=== PATIENT | female | born 1935 | race African-American/Black ===

== ENCOUNTER 2020-10-17 10:58 | Inpatient (IN) ==
[2020-10-17] MEDS ORDERED: NALOXONE 0.4 MG/ML VIAL ONE (11:27)
[2020-10-17] MEDS ORDERED: NALOXONE 0.4 MG/ML VIAL IV STA (11:28)
[2020-10-17] MEDS ORDERED: ONDANSETRON 4 MG/2 ML VIAL IV STA (11:37)
[2020-10-17 11:48] LABS: Basophils % 0.4 % (0.0-0.8); Hematocrit 28.3 VOL% (35.7-47.0); Immature Granulocytes % 0.9 %; Immature Granulocytes Absolute 0.02 #; Lymphocytes # 0.4 10*3/uL (1.4-4.0); Lymphocytes % 14.9 % (21.3-54.2); Mean Corpuscular HGB Conc 31.8 GM/DL (32-36); Mean Corpuscular Volume 98.6 FL (87-102); Mean Platelet Volume 13.3 FL (9.6-12.0); Monocytes % 10.2 % (1.7-12.7); Neutrophils % 73.6 % (38.7-73.9); Platelet Count 113 T/CUMM (130-400); Red Blood Count 2.87 MC/CUMM (3.8-5.5); Red Cell Distribution Width 15.8 % (9.3-17.3); White Blood Count 2.4 T/CUMM (4-12)
[2020-10-17 12:07] LABS: Bilirubin,Total 0.5 MG/DL (0.2-1.0); Calcium 8.8 MG/DL (8.5-10.1); Osmolality,Calculated 291.4 MOS/KG (273-304); Potassium 5.3 MMOL/L (3.5-5.1); Total Protein 6.8 G/DL (5.0-7.5)
[2020-10-17] MEDS ORDERED: SODIUM CHLORIDE 0.9% 1,000 ML IV STA (12:15)
[2020-10-17 12:45] LABS: INR 1.2; PT Patient Result 12.6 SECS (9.8-11.9)
[2020-10-17 12:56] LABS: Anisocytosis 2+; Platelet Estimate Adequate; Tear Drop Cells Few
[2020-10-17 12:57] LABS: Poikilocytosis 1+
[2020-10-17] MEDS ORDERED: GLUCAGON 1 MG VIAL IM PRN (13:44)
[2020-10-17 15:52] LABS: Hematocrit 26.7 VOL% (35.7-47.0); Hemoglobin 8.7 GM/DL (12.0-16.0)
[2020-10-17] MEDS: PANTOPRAZOLE 40 MG VIAL IV SCH ×2 (16:00→21:30)
[2020-10-17] MEDS: SODIUM CHLORIDE 0.9% 1,000 ML IV SCH ×2 (16:00→23:54)
[2020-10-17 20:33] LABS: Hematocrit 29.6 VOL% (35.7-47.0); Hemoglobin 9.1 GM/DL (12.0-16.0)
[2020-10-18 02:06] LABS: Hematocrit 24.8 VOL% (35.7-47.0); Hemoglobin 8.1 GM/DL (12.0-16.0)
[2020-10-18 02:28] LABS: Albumin 2.5 G/DL (3.4-5.0); Bilirubin,Total 0.4 MG/DL (0.2-1.0); Osmolality,Calculated 294.8 MOS/KG (273-304); Potassium 5.1 MMOL/L (3.5-5.1); Total Protein 6.1 G/DL (5.0-7.5)
[2020-10-18 05:43] LABS: Eosinophils % 1.1 % (0.00-10.9); Hematocrit 24.6 VOL% (35.7-47.0); Hemoglobin 8.3 GM/DL (12.0-16.0); Lymphocytes # 0.4 10*3/uL (1.4-4.0); Lymphocytes % 22.5 % (21.3-54.2); Mean Corpuscular HGB Conc 33.7 GM/DL (32-36); Mean Corpuscular Volume 97.6 FL (87-102); Mean Platelet Volume 12.2 FL (9.6-12.0); Neutrophils % 67.4 % (38.7-73.9); Red Blood Count 2.52 MC/CUMM (3.8-5.5); Red Cell Distribution Width 15.8 % (9.3-17.3); White Blood Count 1.8 T/CUMM (4-12)
[2020-10-18 05:49] LABS: Platelet Count 68 T/CUMM (130-400)
[2020-10-18 06:14] LABS: Anisocytosis 1+; Hypochromasia 1+; Microcytosis 1+
[2020-10-18 06:15] LABS: Ovalocytes Few; Platelet Estimate Decreased; Target Cells Slight
[2020-10-18 07:57] LABS: Hematocrit 24.9 VOL% (35.7-47.0); Hemoglobin 8.1 GM/DL (12.0-16.0)
[2020-10-18] MEDS: SODIUM CHLORIDE 0.9% 1,000 ML IV SCH ×5 (09:19→19:30)
[2020-10-18] MEDS: PANTOPRAZOLE 40 MG VIAL IV SCH ×2 (09:20→20:55)
[2020-10-18] MEDS ORDERED: propofoL 200 MG/20 ML VIAL IV ONE (10:10)
[2020-10-18] MEDS ORDERED: ETOMIDATE 20 MG/10 ML VIAL IV ONE (10:10)
[2020-10-18] MEDS ORDERED: LIDOCAINE 2% 5 ML VIAL ONE (10:10)
[2020-10-18] MEDS ORDERED: PHENYLEPHRINE 1 MG/10 ML SYRINGE IV ONE (10:10)
[2020-10-18] MEDS: SUCRALFATE 1 GM/10 ML UDCUP PO SCH (16:16)
[2020-10-19] MEDS: SODIUM CHLORIDE 0.9% 1,000 ML IV SCH ×3 (03:49→11:19)
[2020-10-19 05:17] LABS: Eosinophils % 1.3 % (0.00-10.9); Hematocrit 24.2 VOL% (35.7-47.0); Hemoglobin 7.7 GM/DL (12.0-16.0); Immature Granulocytes % 0.4 %; Immature Granulocytes Absolute 0.01 #; Lymphocytes # 0.5 10*3/uL (1.4-4.0); Lymphocytes % 20.4 % (21.3-54.2); Mean Corpuscular HGB Conc 31.8 GM/DL (32-36); Mean Corpuscular Volume 100.4 FL (87-102); Mean Platelet Volume 11.9 FL (9.6-12.0); Monocytes % 8.9 % (1.7-12.7); Platelet Count 81 T/CUMM (130-400); Red Blood Count 2.41 MC/CUMM (3.8-5.5); Red Cell Distribution Width 15.9 % (9.3-17.3); White Blood Count 2.3 T/CUMM (4-12)
[2020-10-19 05:35] LABS: Hypochromasia 1+; Microcytosis 1+; Ovalocytes Slight; Platelet Estimate Decreased
[2020-10-19 05:41] LABS: Albumin 2.3 G/DL (3.4-5.0); Bilirubin,Total 0.6 MG/DL (0.2-1.0); Calcium 8.5 MG/DL (8.5-10.1); Potassium 4.3 MMOL/L (3.5-5.1); Total Protein 5.5 G/DL (5.0-7.5)
[2020-10-19] MEDS: PANTOPRAZOLE 40 MG VIAL IV SCH ×2 (08:35→20:57)
[2020-10-19] MEDS: DEXTROSE 50% 25 GM/50 ML VIAL IV PRN ×2 (08:35→11:17)
[2020-10-19] MEDS: SUCRALFATE 1 GM/10 ML UDCUP PO SCH ×2 (08:35→15:45)
[2020-10-19] MEDS: DEXTROSE 5% NACL 0.9% 1,000 ML IV SCH (12:19)
[2020-10-20] MEDS: DEXTROSE 5% NACL 0.9% 1,000 ML IV SCH (01:34)
[2020-10-20 05:34] LABS: Basophils % 0.5 % (0.0-0.8); Eosinophils % 0.9 % (0.00-10.9); Hematocrit 26.5 VOL% (35.7-47.0); Hemoglobin 8.3 GM/DL (12.0-16.0); Immature Granulocytes % 0.5 %; Immature Granulocytes Absolute 0.01 #; Lymphocytes # 0.4 10*3/uL (1.4-4.0); Lymphocytes % 20.3 % (21.3-54.2); Mean Corpuscular HGB Conc 31.3 GM/DL (32-36); Mean Corpuscular Volume 101.9 FL (87-102); Mean Platelet Volume 12.2 FL (9.6-12.0); Monocytes % 10.6 % (1.7-12.7); Neutrophils % 67.2 % (38.7-73.9); White Blood Count 2.2 T/CUMM (4-12)
[2020-10-20 05:43] LABS: Platelet Count 78 T/CUMM (130-400)
[2020-10-20 05:51] LABS: Calcium 8.6 MG/DL (8.5-10.1); Hypochromasia 1+; Microcytosis 1+; Osmolality,Calculated 292.8 MOS/KG (273-304); Platelet Estimate Decreased; Potassium 3.7 MMOL/L (3.5-5.1)
[2020-10-20] MEDS: PANTOPRAZOLE 40 MG VIAL IV SCH ×2 (09:12→21:44)
[2020-10-20] MEDS: SUCRALFATE 1 GM/10 ML UDCUP PO SCH ×3 (09:12→15:57)
[2020-10-21 07:15] LABS: Calcium 8.3 MG/DL (8.5-10.1); Osmolality,Calculated 283.1 MOS/KG (273-304); Potassium 3.3 MMOL/L (3.5-5.1)
[2020-10-21] MEDS ORDERED: MAGNESIUM SULF RIDER 4 GM in PREMIX 1 EACH IV ONE (07:43)
[2020-10-21] MEDS ORDERED: POTASSIUM CHLORIDE 20 MEQ/15 ML UDCUP PO ONE (07:44)
[2020-10-21] MEDS: PANTOPRAZOLE 40 MG VIAL IV SCH (08:50)
[2020-10-21] MEDS: SUCRALFATE 1 GM/10 ML UDCUP PO SCH (09:43)
[2020-10-21 12:26] VITALS: BP 116/77
== END 2020-10-21 14:35 | DRG 369 ==
LOC: EDBD → EDUNIT# → N.ED 10:58 → N.EDINP 13:44 → N.TELES 14:39
PROVIDERS: ADMIT Internal Medicine; ATTEND Internal Medicine

== ENCOUNTER 2020-11-01 11:13 | Inpatient (IN) ==
[2020-11-01 12:37] LABS: Eosinophils % 1.9 % (0.00-10.9); Hematocrit 21.2 VOL% (35.7-47.0); Hemoglobin 6.9 GM/DL (12.0-16.0); Lymphocytes # 0.3 10*3/uL (1.4-4.0); Lymphocytes % 26.2 % (21.3-54.2); Mean Corpuscular HGB Conc 32.5 GM/DL (32-36); Mean Platelet Volume 12.5 FL (9.6-12.0); Monocytes % 18.7 % (1.7-12.7); Neutrophils % 53.2 % (38.7-73.9); Platelet Count 74 T/CUMM (130-400); Red Blood Count 2.12 MC/CUMM (3.8-5.5); Red Cell Distribution Width 16.7 % (9.3-17.3); White Blood Count 1.1 T/CUMM (4-12)
[2020-11-01 13:02] LABS: Lymphocytes 27 % (20-55); Segmented Neutrophils 59 % (50-85); Total Cells Counted 100
[2020-11-01 13:17] LABS: Albumin 2.7 G/DL (3.4-5.0); Bilirubin,Total 1.2 MG/DL (0.2-1.0); Calcium 8.3 MG/DL (8.5-10.1); Osmolality,Calculated 281.1 MOS/KG (273-304); Potassium 3.6 MMOL/L (3.5-5.1); Total Protein 6.1 G/DL (6.4-8.2)
[2020-11-01] MEDS ORDERED: DOCUSATE SODIUM 100 MG CAPSULE PO PRN (14:18)
[2020-11-01] MEDS ORDERED: ONDANSETRON 4 MG/2 ML VIAL IV PRN (14:18)
[2020-11-01] MEDS ORDERED: hydrALAZINE 20 MG/1 ML VIAL IV PRN (14:18)
[2020-11-01] MEDS ORDERED: ACETAMINOPHEN 325 MG TABLET PO PRN (14:18)
[2020-11-01] MEDS ORDERED: DEXTROSE 50% 25 GM/50 ML VIAL IV PRN (14:18)
[2020-11-01] MEDS ORDERED: GLUCAGON 1 MG VIAL IM PRN (14:18)
[2020-11-01 14:22] LABS: Amorphous Crystals,Urine Occasional /HPF (Few); Bacteria,Urine Occasional /HPF (Few); Bilirubin,Urine Negative (Negative); Blood, Urine Negative (Negative); Glucose,Urine (UA) Negative (Negative); Ketones,Urine Negative (Negative); Mucus,Urine Occasional /LPF (Occasional); Nitrite,Urine Negative (Negative); Protein,Urine Negative; RBC,Urine <1 /HPF (0-4); Squamous Epithelial Cell,Urine Occasional /HPF (0-10); Urine Appearance Slightly Hazy (Clear); Urine Color Yellow (Yellow); Urine Urobilinogen < 2.0 EU/DL (0.2-1.0); WBC,Urine 8 /HPF (0-6)
[2020-11-01 14:51] LABS: Risk Ratio 2.19; Thyroid Stimulating Hormone 3.64 uIU/ml (0.358-3.74); VLDL CHOLESTEROL 17.6 MG/DL
[2020-11-01] MEDS ORDERED: MAGNESIUM SULF RIDER 4 GM in PREMIX 1 EACH IV PRN (15:07)
[2020-11-01] MEDS ORDERED: SODIUM CHLORIDE 0.9% 1,000 ML IV PRN (15:07)
[2020-11-01] MEDS ORDERED: CYANOCOBALAMIN 1000 MCG/1 ML VIAL IM SCH (15:30)
[2020-11-01] MEDS: MAGNESIUM SULF RIDER 2 GM in PREMIX 1 EACH IV PRN (16:48)
[2020-11-01] MEDS: FILGRASTIM-SNDZ 300 MCG/0.5 ML SYRINGE SUBCUT SCH (16:51)
[2020-11-01] MEDS: LIDOCAINE 2% VISCOUS 100 ML BOTTLE SWISH/SPIT SCH (17:33)
[2020-11-01] MEDS: QUEtiapine 25 MG TABLET PO SCH (21:00)
[2020-11-01] MEDS: SUCRALFATE 1 GM/10 ML UDCUP PO SCH (21:00)
[2020-11-01] MEDS: MEMANTINE 5 MG TABLET PO SCH (21:00)
[2020-11-02] MEDS ORDERED: LORazepam 2 MG/1 ML VIAL IV ONE (00:40)
[2020-11-02 05:17] LABS: Basophils % 0.6 % (0.0-0.8); Eosinophils % 1.2 % (0.00-10.9); Hematocrit 24.1 VOL% (35.7-47.0); Hemoglobin 8.2 GM/DL (12.0-16.0); Immature Granulocytes % 1.2 %; Immature Granulocytes Absolute 0.02 #; Lymphocytes # 0.4 10*3/uL (1.4-4.0); Lymphocytes % 22.5 % (21.3-54.2); Mean Corpuscular Volume 94.1 FL (87-102); Mean Platelet Volume 12.8 FL (9.6-12.0); Monocytes % 13.6 % (1.7-12.7); Neutrophils % 60.9 % (38.7-73.9); Red Cell Distribution Width 16.8 % (9.3-17.3)
[2020-11-02 05:24] LABS: Albumin 2.6 G/DL (3.4-5.0); Bilirubin,Total 0.7 MG/DL (0.2-1.0); Calcium 8.7 MG/DL (8.5-10.1); Osmolality,Calculated 282.8 MOS/KG (273-304); Potassium 3.2 MMOL/L (3.5-5.1); Total Protein 5.7 G/DL (6.4-8.2)
[2020-11-02 05:51] LABS: White Blood Count 1.7 T/CUMM (4-12)
[2020-11-02 05:52] LABS: Platelet Count 63 T/CUMM (130-400); Red Blood Count 2.56 MC/CUMM (3.8-5.5)
[2020-11-02 06:45] LABS: Band Neutrophils 2 % (0-10); Eosinophils 1 % (0-10); Hypochromasia 1+; Lymphocytes 23 % (20-55); Microcytosis 1+; Platelet Estimate Decreased; Segmented Neutrophils 60 % (50-85); Total Cells Counted 100
[2020-11-02] MEDS ORDERED: POTASSIUM CHLORIDE RIDER 10 MEQ in PREMIX 1 EACH IV PRN (07:33)
[2020-11-02] MEDS: FILGRASTIM-SNDZ 300 MCG/0.5 ML SYRINGE SUBCUT SCH (08:51)
[2020-11-02] MEDS: lisinopriL 5 MG TABLET PO SCH (08:52)
[2020-11-02] MEDS: POTASSIUM CHLORIDE 20 MEQ TABLET PO PRN ×4 (08:52→15:15)
[2020-11-02] MEDS: FERROUS SULFATE 325 MG TABLET PO SCH (08:52)
[2020-11-02] MEDS: MEMANTINE 5 MG TABLET PO SCH ×2 (08:52→20:16)
[2020-11-02] MEDS: SUCRALFATE 1 GM/10 ML UDCUP PO SCH ×2 (08:52→20:16)
[2020-11-02] MEDS: MULTIVITAMIN (PRENATAL) TABLET PO SCH (08:53)
[2020-11-02] MEDS: buPROPion SR 100 MG TABLET PO SCH (08:53)
[2020-11-02] MEDS ORDERED: MAGNESIUM SULF RIDER 4 GM in PREMIX 1 EACH IV ONE (09:00)
[2020-11-02] MEDS: LIDOCAINE 2% VISCOUS 100 ML BOTTLE SWISH/SPIT SCH ×3 (09:03→16:35)
[2020-11-02] MEDS: GABAPENTIN 300 MG CAPSULE PO SCH (20:16)
[2020-11-02] MEDS: PANTOPRAZOLE 40 MG TABLET PO SCH (20:16)
[2020-11-02] MEDS: QUEtiapine 25 MG TABLET PO SCH (20:16)
[2020-11-03 05:05] LABS: Basophils % 0.5 % (0.0-0.8); Eosinophils # 0.1 10*3/uL (0.0-0.87); Eosinophils % 2.3 % (0.00-10.9); Hematocrit 26.4 VOL% (35.7-47.0); Hemoglobin 8.8 GM/DL (12.0-16.0); Immature Granulocytes % 9.9 %; Immature Granulocytes Absolute 0.22 #; Lymphocytes # 0.5 10*3/uL (1.4-4.0); Lymphocytes % 20.3 % (21.3-54.2); Mean Corpuscular HGB Conc 33.3 GM/DL (32-36); Mean Corpuscular Volume 93.6 FL (87-102); Mean Platelet Volume 11.6 FL (9.6-12.0); Monocytes % 17.1 % (1.7-12.7); Neutrophils % 49.9 % (38.7-73.9); Platelet Count 74 T/CUMM (130-400); Red Blood Count 2.82 MC/CUMM (3.8-5.5); Red Cell Distribution Width 18.4 % (9.3-17.3); White Blood Count 2.2 T/CUMM (4-12)
[2020-11-03 05:24] LABS: Albumin 2.3 G/DL (3.4-5.0); Bilirubin,Total 1.3 MG/DL (0.2-1.0); Calcium 8.5 MG/DL (8.5-10.1); Osmolality,Calculated 287.6 MOS/KG (273-304); Total Protein 5.2 G/DL (6.4-8.2)
[2020-11-03 05:29] LABS: Band Neutrophils 2 % (0-10); Eosinophils 2 % (0-10); Lymphocytes 21 % (20-55); Platelet Estimate Decreased; Segmented Neutrophils 56 % (50-85); Total Cells Counted 100
[2020-11-03 05:30] LABS: Hypochromasia 1+; Microcytosis 1+; Ovalocytes Slight
[2020-11-03] MEDS: LIDOCAINE 2% VISCOUS 100 ML BOTTLE SWISH/SPIT SCH ×3 (08:32→17:17)
[2020-11-03] MEDS: FILGRASTIM-SNDZ 300 MCG/0.5 ML SYRINGE SUBCUT SCH (08:32)
[2020-11-03] MEDS: PANTOPRAZOLE 40 MG TABLET PO SCH ×2 (08:33→20:06)
[2020-11-03] MEDS: SUCRALFATE 1 GM/10 ML UDCUP PO SCH ×2 (08:33→20:05)
[2020-11-03] MEDS: allopurinoL 100 MG TABLET PO SCH (08:33)
[2020-11-03] MEDS: FERROUS SULFATE 325 MG TABLET PO SCH (08:33)
[2020-11-03] MEDS: buPROPion SR 100 MG TABLET PO SCH (08:33)
[2020-11-03] MEDS: lisinopriL 5 MG TABLET PO SCH (08:33)
[2020-11-03] MEDS: ASPIRIN EC 81 MG TABLET PO SCH (08:33)
[2020-11-03] MEDS: MULTIVITAMIN (PRENATAL) TABLET PO SCH (08:33)
[2020-11-03] MEDS: ESCITALOPRAM 10 MG TABLET PO SCH (08:33)
[2020-11-03] MEDS: MEMANTINE 5 MG TABLET PO SCH ×2 (08:33→20:06)
[2020-11-03] MEDS ORDERED: DEXTROSE 5% NACL 0.45% 1,000 ML IV SCH (12:30)
[2020-11-03] MEDS: QUEtiapine 25 MG TABLET PO SCH (20:06)
[2020-11-03] MEDS: GABAPENTIN 300 MG CAPSULE PO SCH (20:06)
[2020-11-04 05:04] LABS: Basophils % 0.4 % (0.0-0.8); Eosinophils # 0.1 10*3/uL (0.0-0.87); Eosinophils % 2.4 % (0.00-10.9); Immature Granulocytes % 7.5 %; Immature Granulocytes Absolute 0.19 #; Lymphocytes # 0.5 10*3/uL (1.4-4.0); Lymphocytes % 19.8 % (21.3-54.2); Mean Corpuscular HGB Conc 32.9 GM/DL (32-36); Mean Corpuscular Volume 94.6 FL (87-102); Mean Platelet Volume 13.2 FL (9.6-12.0); Monocytes % 20.2 % (1.7-12.7); NRBC # 0.02 10*3/uL; Neutrophils % 49.7 % (38.7-73.9)
[2020-11-04 05:08] LABS: Platelet Count 77 T/CUMM (130-400); Red Blood Count 2.96 MC/CUMM (3.8-5.5); White Blood Count 2.5 T/CUMM (4-12)
[2020-11-04 05:09] LABS: Hemoglobin 9.2 GM/DL (12.0-16.0)
[2020-11-04 05:21] LABS: Calcium 8.7 MG/DL (8.5-10.1); Osmolality,Calculated 287.7 MOS/KG (273-304); Potassium 3.8 MMOL/L (3.5-5.1)
[2020-11-04 05:25] LABS: Albumin 2.4 G/DL (3.4-5.0); Bilirubin,Total 0.7 MG/DL (0.2-1.0); Calcium 8.6 MG/DL (8.5-10.1); Potassium 3.7 MMOL/L (3.5-5.1); Total Protein 5.7 G/DL (6.4-8.2)
[2020-11-04 05:31] LABS: Band Neutrophils 7 % (0-10); Eosinophils 3 % (0-10); Lymphocytes 19 % (20-55); Segmented Neutrophils 55 % (50-85); Total Cells Counted 100
[2020-11-04 05:32] LABS: Atypical Lymphocytes Few; Hypochromasia 1+; Target Cells Slight
[2020-11-04 05:33] LABS: Microcytosis 1+; Ovalocytes Slight; Platelet Estimate Decreased
[2020-11-04] MEDS: MAGNESIUM SULF RIDER 2 GM in PREMIX 1 EACH IV PRN (06:02)
[2020-11-04] MEDS: POTASSIUM CHLORIDE 20 MEQ TABLET PO PRN (06:02)
[2020-11-04] MEDS: ESCITALOPRAM 10 MG TABLET PO SCH (08:22)
[2020-11-04] MEDS: ASPIRIN EC 81 MG TABLET PO SCH (08:22)
[2020-11-04] MEDS: MEMANTINE 5 MG TABLET PO SCH ×2 (08:22→20:00)
[2020-11-04] MEDS: allopurinoL 100 MG TABLET PO SCH (08:22)
[2020-11-04] MEDS: SUCRALFATE 1 GM/10 ML UDCUP PO SCH ×2 (08:22→19:59)
[2020-11-04] MEDS: PANTOPRAZOLE 40 MG TABLET PO SCH ×2 (08:22→20:00)
[2020-11-04] MEDS: buPROPion SR 100 MG TABLET PO SCH (08:22)
[2020-11-04] MEDS: LIDOCAINE 2% VISCOUS 100 ML BOTTLE SWISH/SPIT SCH ×3 (08:23→18:21)
[2020-11-04] MEDS: FERROUS SULFATE 325 MG TABLET PO SCH (08:23)
[2020-11-04] MEDS: MULTIVITAMIN (PRENATAL) TABLET PO SCH (08:23)
[2020-11-04] MEDS: GABAPENTIN 300 MG CAPSULE PO SCH (20:00)
[2020-11-04] MEDS: QUEtiapine 25 MG TABLET PO SCH (20:00)
[2020-11-04] MEDS ORDERED: ZALEPLON 5 MG CAPSULE PO PRN (21:24)
[2020-11-05 07:51] VITALS: BP 101/59
[2020-11-05] MEDS: LIDOCAINE 2% VISCOUS 100 ML BOTTLE SWISH/SPIT SCH (09:00)
[2020-11-05] MEDS: allopurinoL 100 MG TABLET PO SCH (09:00)
[2020-11-05] MEDS: buPROPion SR 100 MG TABLET PO SCH (09:00)
[2020-11-05] MEDS: FERROUS SULFATE 325 MG TABLET PO SCH (09:01)
[2020-11-05] MEDS: ESCITALOPRAM 10 MG TABLET PO SCH (09:01)
[2020-11-05] MEDS: MEMANTINE 5 MG TABLET PO SCH (09:01)
[2020-11-05] MEDS: SUCRALFATE 1 GM/10 ML UDCUP PO SCH (09:01)
[2020-11-05] MEDS: MULTIVITAMIN (PRENATAL) TABLET PO SCH (09:01)
[2020-11-05] MEDS: ASPIRIN EC 81 MG TABLET PO SCH (09:01)
[2020-11-05] MEDS: PANTOPRAZOLE 40 MG TABLET PO SCH (09:01)
== END 2020-11-05 11:25 | DRG 809 ==
LOC: EDUNIT# → EDBD → N.ED 11:13 → N.EDINP 13:45 → SUATTDRO 13:45 → N.4E 14:15
PROVIDERS: ADMIT Internal Medicine; ATTEND Internal Medicine

== ENCOUNTER 2020-11-29 11:12 | Inpatient (IN) ==
[2020-11-29] MEDS ORDERED: PANTOPRAZOLE 40 MG VIAL IV STA (11:42)
[2020-11-29 11:48] LABS: Eosinophils # 0.1 10*3/uL (0.0-0.87); Eosinophils % 3.5 % (0.00-10.9); Hematocrit 30.1 VOL% (35.7-47.0); Hemoglobin 9.3 GM/DL (12.0-16.0); Immature Granulocytes % 0.5 %; Immature Granulocytes Absolute 0.01 #; Lymphocytes # 0.3 10*3/uL (1.4-4.0); Mean Corpuscular HGB Conc 30.9 GM/DL (32-36); Mean Corpuscular Volume 99.3 FL (87-102); Mean Platelet Volume 11.5 FL (9.6-12.0); Monocytes % 19.5 % (1.7-12.7); Neutrophils % 60.5 % (38.7-73.9); Platelet Count 148 T/CUMM (130-400); Red Blood Count 3.03 MC/CUMM (3.8-5.5); Red Cell Distribution Width 18.2 % (9.3-17.3)
[2020-11-29 11:58] LABS: INR 1.1; PT Patient Result 12.5 SECS (10.5-12.0)
[2020-11-29 12:07] LABS: Albumin 2.1 G/DL (3.4-5.0); Bilirubin,Total 0.4 MG/DL (0.2-1.0); Calcium 8.7 MG/DL (8.5-10.1); Osmolality,Calculated 279.3 MOS/KG (273-304); Potassium 3.9 MMOL/L (3.5-5.1); Total Protein 6.1 G/DL (6.4-8.2)
[2020-11-29 12:16] LABS: Band Neutrophils 10 % (0-10); Eosinophils 2 % (0-10); Lymphocytes 12 % (20-55); Nucleated Red Blood Cells 2 (0-5); Platelet Estimate Adequate; Segmented Neutrophils 58 % (50-85); Total Cells Counted 100
[2020-11-29 12:17] LABS: Anisocytosis 2+; Burr Cells Few; Hypochromasia Slight; Poikilocytosis 1+
[2020-11-29 12:18] LABS: Macrocytosis 1+
[2020-11-29] MEDS ORDERED: DOCUSATE SODIUM 100 MG CAPSULE PO PRN (13:32)
[2020-11-29] MEDS ORDERED: GLUCAGON 1 MG VIAL IM PRN (13:32)
[2020-11-29] MEDS ORDERED: ONDANSETRON 4 MG/2 ML VIAL IV PRN (13:32)
[2020-11-29] MEDS ORDERED: DEXTROSE 50% 25 GM/50 ML VIAL IV PRN (13:32)
[2020-11-29] MEDS ORDERED: ACETAMINOPHEN 325 MG TABLET PO PRN (13:32)
[2020-11-29] MEDS ORDERED: traMADol 50 MG TABLET PO PRN (13:41)
[2020-11-29] MEDS ORDERED: DICLOFENAC 1% GEL 100 GM TUBE TOP PRN (13:41)
[2020-11-29] MEDS: SUCRALFATE 1 GM/10 ML UDCUP PO SCH ×2 (16:54→20:58)
[2020-11-29] MEDS: PANTOPRAZOLE 40 MG VIAL IV SCH (20:58)
[2020-11-29] MEDS: GABAPENTIN 300 MG CAPSULE PO SCH (20:58)
[2020-11-30 06:54] LABS: Basophils % 0.4 % (0.0-0.8); Eosinophils # 0.1 10*3/uL (0.0-0.87); Eosinophils % 2.8 % (0.00-10.9); Hematocrit 23.4 VOL% (35.7-47.0); Hemoglobin 7.4 GM/DL (12.0-16.0); Immature Granulocytes % 0.4 %; Immature Granulocytes Absolute 0.01 #; Lymphocytes # 0.4 10*3/uL (1.4-4.0); Lymphocytes % 14.1 % (21.3-54.2); Mean Corpuscular HGB Conc 31.6 GM/DL (32-36); Mean Corpuscular Volume 97.5 FL (87-102); Mean Platelet Volume 12.2 FL (9.6-12.0); Monocytes % 21.8 % (1.7-12.7); Neutrophils % 60.5 % (38.7-73.9); Platelet Count 165 T/CUMM (130-400); Red Cell Distribution Width 17.6 % (9.3-17.3); White Blood Count 2.5 T/CUMM (4-12)
[2020-11-30 07:15] LABS: Atypical Lymphocytes Few; Eosinophils 8 % (0-10); Hypochromasia 2+; Lymphocytes 19 % (20-55); Microcytosis 1+; Platelet Estimate Adequate; Segmented Neutrophils 58 % (50-85); Total Cells Counted 100
[2020-11-30 07:24] LABS: % Iron Saturation 23.3 % (18-50)
[2020-11-30 07:25] LABS: Folate 17.88 NG/ML (5.38-24.0); Vitamin B12 1839 PG/ML (211-911)
[2020-11-30 07:26] LABS: Calcium 8.6 MG/DL (8.5-10.1); Potassium 3.6 MMOL/L (3.5-5.1)
[2020-11-30 07:54] LABS: Sedimentation Rate-Westergren 106 MM/HR (0-30)
[2020-11-30] MEDS: ESCITALOPRAM 10 MG TABLET PO SCH (08:50)
[2020-11-30] MEDS: SUCRALFATE 1 GM/10 ML UDCUP PO SCH ×2 (08:50→21:45)
[2020-11-30] MEDS: buPROPion SR 100 MG TABLET PO SCH (08:50)
[2020-11-30] MEDS: ATORVASTATIN 10 MG TABLET PO SCH (08:51)
[2020-11-30] MEDS: PANTOPRAZOLE 40 MG VIAL IV SCH ×2 (08:51→21:46)
[2020-11-30] MEDS ORDERED: PANTOPRAZOLE 40 MG VIAL IV SCH (09:00)
[2020-11-30] MEDS ORDERED: SODIUM CHLORIDE 0.9% 1,000 ML IV PRN (09:10)
[2020-11-30 17:44] LABS: Hematocrit 36.4 VOL% (35.7-47.0); Hemoglobin 11.3 GM/DL (12.0-16.0)
[2020-11-30] MEDS: GABAPENTIN 300 MG CAPSULE PO SCH (21:45)
[2020-12-01 05:29] LABS: Calcium 8.7 MG/DL (8.5-10.1); Osmolality,Calculated 280.1 MOS/KG (273-304); Potassium 3.6 MMOL/L (3.5-5.1)
[2020-12-01 06:32] LABS: Basophils % 0.7 % (0.0-0.8); Eosinophils % 1.3 % (0.00-10.9); Hematocrit 26.8 VOL% (35.7-47.0); Immature Granulocytes % 0.3 %; Immature Granulocytes Absolute 0.01 #; Lymphocytes # 0.5 10*3/uL (1.4-4.0); Lymphocytes % 15.7 % (21.3-54.2); Mean Corpuscular HGB Conc 31.7 GM/DL (32-36); Mean Corpuscular Volume 96.8 FL (87-102); Mean Platelet Volume 12.4 FL (9.6-12.0); Monocytes % 21.3 % (1.7-12.7); Neutrophils % 60.7 % (38.7-73.9); Platelet Count 140 T/CUMM (130-400); Red Blood Count 2.77 MC/CUMM (3.8-5.5); White Blood Count 3.1 T/CUMM (4-12)
[2020-12-01 06:33] LABS: Hemoglobin 8.5 GM/DL (12.0-16.0)
[2020-12-01 06:56] LABS: Eosinophils 2 % (0-10); Hypochromasia 1+; Lymphocytes 19 % (20-55); Microcytosis 1+; Platelet Estimate Adequate; Segmented Neutrophils 62 % (50-85); Total Cells Counted 100
[2020-12-01 06:57] LABS: Ovalocytes Slight
[2020-12-01 06:58] LABS: Atypical Lymphocytes Few
[2020-12-01] MEDS: PANTOPRAZOLE 40 MG VIAL IV SCH ×2 (08:23→22:34)
[2020-12-01] MEDS: buPROPion SR 100 MG TABLET PO SCH (08:23)
[2020-12-01] MEDS: ESCITALOPRAM 10 MG TABLET PO SCH (08:23)
[2020-12-01] MEDS: SUCRALFATE 1 GM/10 ML UDCUP PO SCH ×2 (08:23→22:39)
[2020-12-01] MEDS: ATORVASTATIN 10 MG TABLET PO SCH (08:23)
[2020-12-01] MEDS ORDERED: QUEtiapine 25 MG TABLET PO SCH ×2 (09:00→21:00)
[2020-12-01] MEDS ORDERED: LORazepam 2 MG/1 ML VIAL IV PRN (18:39)
[2020-12-01] MEDS: GABAPENTIN 300 MG CAPSULE PO SCH (22:34)
[2020-12-02 06:34] LABS: Basophils % 0.6 % (0.0-0.8); Eosinophils # 0.1 10*3/uL (0.0-0.87); Eosinophils % 1.9 % (0.00-10.9); Hematocrit 26.6 VOL% (35.7-47.0); Hemoglobin 8.5 GM/DL (12.0-16.0); Immature Granulocytes % 0.3 %; Immature Granulocytes Absolute 0.01 #; Lymphocytes # 0.4 10*3/uL (1.4-4.0); Mean Corpuscular Volume 96.7 FL (87-102); Mean Platelet Volume 12.2 FL (9.6-12.0); Monocytes % 19.1 % (1.7-12.7); Neutrophils % 66.1 % (38.7-73.9); Platelet Count 137 T/CUMM (130-400); Red Blood Count 2.75 MC/CUMM (3.8-5.5); Red Cell Distribution Width 17.3 % (9.3-17.3); White Blood Count 3.1 T/CUMM (4-12)
[2020-12-02 06:56] LABS: Band Neutrophils 1 % (0-10); Calcium 8.6 MG/DL (8.5-10.1); Eosinophils 3 % (0-10); Hypochromasia 1+; Lymphocytes 9 % (20-55); Microcytosis 1+; Osmolality,Calculated 283.8 MOS/KG (273-304); Platelet Estimate Adequate; Potassium 3.3 MMOL/L (3.5-5.1); Segmented Neutrophils 73 % (50-85); Total Cells Counted 100
[2020-12-02] MEDS: ATORVASTATIN 10 MG TABLET PO SCH (08:16)
[2020-12-02] MEDS: SUCRALFATE 1 GM/10 ML UDCUP PO SCH ×2 (08:16→20:37)
[2020-12-02] MEDS: PANTOPRAZOLE 40 MG VIAL IV SCH ×2 (08:16→20:37)
[2020-12-02] MEDS: ESCITALOPRAM 10 MG TABLET PO SCH (08:16)
[2020-12-02] MEDS: buPROPion SR 100 MG TABLET PO SCH (08:16)
[2020-12-02 10:18] LABS: Hemoglobin A1 (Alkaline) 97.7 % (96.5-98.5); Hemoglobin A2 (Alkaline) 2.3 % (1.5-3.5)
[2020-12-02] MEDS ORDERED: POTASSIUM CHLORIDE 20 MEQ/15 ML UDCUP PO ONE (13:00)
[2020-12-02] MEDS: IRON (CARBONYL) 45 MG TABLET PO SCH (16:44)
[2020-12-02] MEDS: GABAPENTIN 300 MG CAPSULE PO SCH (20:36)
[2020-12-03 05:51] LABS: Basophils % 0.3 % (0.0-0.8); Eosinophils # 0.1 10*3/uL (0.0-0.87); Eosinophils % 2.3 % (0.00-10.9); Hematocrit 26.8 VOL% (35.7-47.0); Hemoglobin 8.4 GM/DL (12.0-16.0); Immature Granulocytes % 0.6 %; Immature Granulocytes Absolute 0.02 #; Lymphocytes # 0.4 10*3/uL (1.4-4.0); Lymphocytes % 10.8 % (21.3-54.2); Mean Corpuscular HGB Conc 31.3 GM/DL (32-36); Mean Corpuscular Volume 96.8 FL (87-102); Mean Platelet Volume 12.6 FL (9.6-12.0); Monocytes % 19.5 % (1.7-12.7); Neutrophils % 66.5 % (38.7-73.9); Platelet Count 145 T/CUMM (130-400); Red Blood Count 2.77 MC/CUMM (3.8-5.5); White Blood Count 3.4 T/CUMM (4-12)
[2020-12-03 06:08] LABS: Calcium 8.6 MG/DL (8.5-10.1); Osmolality,Calculated 282.1 MOS/KG (273-304); Potassium 3.9 MMOL/L (3.5-5.1)
[2020-12-03 06:45] LABS: Band Neutrophils 2 % (0-10); Eosinophils 2 % (0-10); Lymphocytes 13 % (20-55); Platelet Estimate Decreased; Segmented Neutrophils 68 % (50-85); Total Cells Counted 100
[2020-12-03 06:46] LABS: Anisocytosis 1+; Atypical Lymphocytes Few; Macrocytosis 1+; Reactive Lymphocytes Few
[2020-12-03] MEDS: SUCRALFATE 1 GM/10 ML UDCUP PO SCH (08:22)
[2020-12-03] MEDS: PANTOPRAZOLE 40 MG VIAL IV SCH (08:22)
[2020-12-03] MEDS: ATORVASTATIN 10 MG TABLET PO SCH (08:22)
[2020-12-03] MEDS: buPROPion SR 100 MG TABLET PO SCH (08:22)
[2020-12-03] MEDS: ESCITALOPRAM 10 MG TABLET PO SCH (08:22)
[2020-12-03] MEDS: IRON (CARBONYL) 45 MG TABLET PO SCH (08:22)
[2020-12-03 15:12] VITALS: BP 99/85
== END 2020-12-03 15:31 | disposition hospice, inpatient (51) | DRG 378 ==
LOC: EDUNIT# → EDBD → N.EDINP 11:12 → N.ED 11:12 → N.5E 15:18 → SUATTDRO 11-30 13:53
PROVIDERS: ADMIT Hospitalist; ATTEND Internal Medicine

== ENCOUNTER 2022-04-14 11:16 | Inpatient (IN) ==
[2022-04-14] MEDS ORDERED: ONDANSETRON 4 MG/2 ML VIAL IV STA (11:46)
[2022-04-14] MEDS ORDERED: HYDROmorphone 1 MG/1 ML SYRINGE IV STA (11:46)
[2022-04-14 12:30] LABS: Hematocrit 22.6 VOL% (35.7-47.0); Immature Granulocytes % 0.7 %; Immature Granulocytes Absolute 0.06 #; Lymphocytes # 0.6 10*3/uL (1.4-4.0); Mean Corpuscular Volume 99.1 FL (87-102); Mean Platelet Volume 11.9 FL (9.6-12.0); Monocytes # 0.9 10*3/uL (0.11-0.8); Neutrophils % 82.3 % (38.7-73.9); Platelet Count 204 T/CUMM (130-400); Red Blood Count 2.28 MC/CUMM (3.8-5.5); Red Cell Distribution Width 21.7 % (9.3-17.3); White Blood Count 9.1 T/CUMM (4-12)
[2022-04-14 12:41] LABS: INR 1.4; PT Patient Result 14.8 SECS (10.1-12.1); Partial Thromboplastin Time 25.8 SECS (23.7-32.9)
[2022-04-14 12:59] LABS: Albumin 2.2 G/DL (3.4-5.0); Calcium 9.8 MG/DL (8.5-10.1); Osmolality,Calculated 292.8 MOS/KG (273-304); Total Protein 6.2 G/DL (6.4-8.2)
[2022-04-14] MEDS ORDERED: GLUCAGON 1 MG VIAL IM PRN (13:27)
[2022-04-14] MEDS ORDERED: ACETAMINOPHEN 325 MG TABLET PO PRN (13:27)
[2022-04-14] MEDS ORDERED: ONDANSETRON 4 MG/2 ML VIAL IV PRN (13:27)
[2022-04-14] MEDS ORDERED: hydrALAZINE 20 MG/1 ML VIAL IV PRN (13:27)
[2022-04-14] MEDS ORDERED: DEXTROSE 10% 250 ML BAG IV PRN (13:27)
[2022-04-14] MEDS ORDERED: SODIUM CHLORIDE 0.45% 1,000 ML IV SCH (13:30)
[2022-04-14] MEDS ORDERED: SODIUM CHLORIDE 0.9% 1,000 ML IV PRN (13:31)
[2022-04-14 14:43] LABS: Bilirubin,Urine Negative (Negative); Blood, Urine Negative (Negative); Glucose,Urine (UA) Negative (Negative); Ketones,Urine Trace mg/dL (Negative); Nitrite,Urine Negative (Negative); Protein,Urine Trace mg/dL (Negative); Urine Appearance Clear (Clear); Urine Color Yellow (Yellow); Urine Specific Gravity 1.025 (1.001-1.035)
[2022-04-14 14:46] LABS: Hyaline Casts,Urine 1 /LPF (0-3); Mucus,Urine Occasional /LPF (Occasional); RBC,Urine 1 /HPF (0-4)
[2022-04-14] MEDS: ALBUTEROL 2.5 MG/3 ML NEB RESP TX SCH (19:27)
[2022-04-14] MEDS: DOCUSATE SODIUM 100 MG CAPSULE PO SCH (21:27)
[2022-04-14] MEDS: LACTATED RINGERS 1,000 ML IV SCH (21:27)
[2022-04-15] MEDS: ALBUTEROL 2.5 MG/3 ML NEB RESP TX SCH ×4 (00:06→20:18)
[2022-04-15] MEDS: LACTATED RINGERS 1,000 ML IV SCH ×3 (00:47→13:21)
[2022-04-15 05:53] LABS: Basophils % 0.1 % (0.0-0.8); Hemoglobin 9.7 GM/DL (12.0-16.0); Immature Granulocytes % 0.5 %; Immature Granulocytes Absolute 0.06 #; Lymphocytes # 0.8 10*3/uL (1.4-4.0); Lymphocytes % 6.8 % (21.3-54.2); Mean Corpuscular HGB Conc 32.3 GM/DL (32-36); Mean Platelet Volume 11.8 FL (9.6-12.0); Monocytes # 1.3 10*3/uL (0.11-0.8); Monocytes % 11.6 % (1.7-12.7); NRBC # 0.04 10*3/uL; Platelet Count 165 T/CUMM (130-400); Red Blood Count 3.26 MC/CUMM (3.8-5.5); Red Cell Distribution Width 22.9 % (9.3-17.3); White Blood Count 11.2 T/CUMM (4-12)
[2022-04-15 06:31] LABS: Calcium 9.7 MG/DL (8.5-10.1); Osmolality,Calculated 294.8 MOS/KG (273-304); Potassium 4.7 MMOL/L (3.5-5.1); Risk Ratio 8.43; Thyroid Stimulating Hormone 4.33 uIU/ml (0.358-3.74); VLDL Cholesterol 20.8 MG/DL
[2022-04-15] MEDS ORDERED: DEXMEDETOMIDINE 200 MCG/2 ML VIAL ONE (06:35)
[2022-04-15] MEDS ORDERED: ONDANSETRON 4 MG/2 ML VIAL ONE (06:35)
[2022-04-15] MEDS ORDERED: fentaNYL 100 MCG/2 ML VIAL ONE (06:35)
[2022-04-15 07:21] LABS: INR 1.4; PT Patient Result 15.1 SECS (10.1-12.1)
[2022-04-15] MEDS ORDERED: BUPIVACAINE MPF 0.5% 30 ML VIAL ONE (07:38)
[2022-04-15] MEDS ORDERED: buprenorphine HCL 0.3 MG/ML VIAL ONE (07:38)
[2022-04-15] MEDS ORDERED: KETAMINE 500 MG/10 ML VIAL ONE (07:41)
[2022-04-15] MEDS ORDERED: DEXAMETHASONE 4 MG/1 ML VIAL ONE (07:44)
[2022-04-15] MEDS ORDERED: LIDOCAINE 1% 5 ML VIAL ONE (07:45)
[2022-04-15] MEDS ORDERED: PHENYLEPHRINE DRIP 20 MG/250 ML PREMIX IV ONE (08:38)
[2022-04-15] MEDS ORDERED: ePHEDrine 50 MG/ML VIAL ONE (09:12)
[2022-04-15] MEDS ORDERED: MAGNESIUM HYDROXIDE SUSP 30 ML UDCUP PO PRN (09:50)
[2022-04-15] MEDS ORDERED: LACTULOSE 20 GM/30 ML UDCUP PO PRN (09:50)
[2022-04-15] MEDS ORDERED: diphenhydrAMINE CAP 25 MG CAPSULE PO PRN (09:50)
[2022-04-15] MEDS ORDERED: BISACODYL 10 MG SUPP RECTAL PRN (09:50)
[2022-04-15] MEDS ORDERED: DOCUSATE SODIUM 100 MG CAPSULE PO PRN (09:54)
[2022-04-15] MEDS ORDERED: traMADol 50 MG TABLET PO PRN (09:54)
[2022-04-15] MEDS ORDERED: LACTATED RINGERS 1,000 ML IV ONE (10:04)
[2022-04-15] MEDS ORDERED: SEVOFLURANE 1 UNIT/15 MINUTE INH ONE (10:04)
[2022-04-15] MEDS ORDERED: HYDROmorphone 1 MG/1 ML SYRINGE IV PRN (10:09)
[2022-04-15] MEDS ORDERED: MEPERIDINE 25 MG/1 ML VIAL IV PRN (10:09)
[2022-04-15] MEDS ORDERED: PROMETHAZINE INJ 25 MG in SODIUM CHLORIDE 0.9% 50 ML IV PRN (10:09)
[2022-04-15] MEDS ORDERED: diphenhydrAMINE 50 MG/1 ML VIAL IV PRN (10:09)
[2022-04-15] MEDS ORDERED: ONDANSETRON 4 MG/2 ML VIAL IV PRN (10:09)
[2022-04-15] MEDS ORDERED: MORPHINE 2 MG/1 ML SYRINGE IV PRN (10:29)
[2022-04-15] MEDS: PANTOPRAZOLE 40 MG TABLET PO SCH (10:43)
[2022-04-15] MEDS: DOCUSATE SODIUM 100 MG CAPSULE PO SCH ×2 (10:43→20:14)
[2022-04-15] MEDS ORDERED: LIDOCAINE 2% VISCOUS 100 ML BOTTLE SWISH/SPIT SCH (11:30)
[2022-04-15] MEDS: GABAPENTIN 300 MG CAPSULE PO SCH (20:15)
[2022-04-15] MEDS: FAMOTIDINE 20 MG TABLET PO SCH ×2 (20:15→20:54)
[2022-04-15] MEDS: traZODone 50 MG TABLET PO SCH (20:15)
[2022-04-15] MEDS: SENNA 8.6 MG TABLET PO SCH (20:54)
[2022-04-15] MEDS ORDERED: PANTOPRAZOLE 40 MG TABLET PO SCH (21:00)
[2022-04-16] MEDS: MORPHINE 2 MG/1 ML SYRINGE IV PRN ×2 (01:10→06:16)
[2022-04-16] MEDS: ALBUTEROL 2.5 MG/3 ML NEB RESP TX SCH ×4 (01:30→19:36)
[2022-04-16] MEDS: LACTATED RINGERS 1,000 ML IV SCH ×2 (01:40→14:16)
[2022-04-16] MEDS: FONDAPARINUX 2.5 MG/0.5 ML SYRINGE SUBCUT SCH (05:35)
[2022-04-16 05:47] LABS: Hematocrit 24.2 VOL% (35.7-47.0); Hemoglobin 7.7 GM/DL (12.0-16.0); Immature Granulocytes % 0.7 %; Lymphocytes # 0.5 10*3/uL (1.4-4.0); Mean Corpuscular HGB Conc 31.8 GM/DL (32-36); Mean Corpuscular Volume 93.8 FL (87-102); Mean Platelet Volume 12.2 FL (9.6-12.0); Monocytes # 1.2 10*3/uL (0.11-0.8); NRBC # 0.03 10*3/uL; Neutrophils % 86.3 % (38.7-73.9); Platelet Count 137 T/CUMM (130-400); Red Blood Count 2.58 MC/CUMM (3.8-5.5); Red Cell Distribution Width 22.4 % (9.3-17.3); White Blood Count 13.4 T/CUMM (4-12)
[2022-04-16 06:20] LABS: Band Neutrophils 1 % (0-10); Hypochromia Slight; Lymphocytes 1 % (20-55); Microcytosis Slight; Platelet Estimate Adequate; Total Cells Counted 100
[2022-04-16 06:22] LABS: Calcium 9.4 MG/DL (8.5-10.1); Osmolality,Calculated 299.7 MOS/KG (273-304); Potassium 4.1 MMOL/L (3.5-5.1)
[2022-04-16] MEDS ORDERED: SODIUM CHLORIDE 0.9% 1,000 ML IV PRN (08:24)
[2022-04-16] MEDS: MULTIVITAMIN (PRENATAL) TABLET PO SCH (11:50)
[2022-04-16] MEDS: allopurinoL 100 MG TABLET PO SCH (11:50)
[2022-04-16] MEDS: FAMOTIDINE 20 MG TABLET PO SCH ×2 (11:50→20:54)
[2022-04-16] MEDS: ASPIRIN EC 81 MG TABLET PO SCH (11:50)
[2022-04-16] MEDS: FERROUS SULFATE 325 MG TABLET PO SCH (11:50)
[2022-04-16] MEDS: ESCITALOPRAM 10 MG TABLET PO SCH (11:50)
[2022-04-16] MEDS: PANTOPRAZOLE 40 MG TABLET PO SCH (12:00)
[2022-04-16] MEDS: DOCUSATE SODIUM 100 MG CAPSULE PO SCH ×2 (12:01→20:53)
[2022-04-16] MEDS ORDERED: cefTRIAXone 1,000 MG in SODIUM CHLORIDE 0.9% 100 ML IV SCH (13:00)
[2022-04-16] MEDS ORDERED: AZITHROMYCIN INJ 500 MG in SODIUM CHLORIDE 0.9% 250 ML IV SCH (14:00)
[2022-04-16 19:09] LABS: Hematocrit 27.5 VOL% (35.7-47.0); Hemoglobin 9.1 GM/DL (12.0-16.0)
[2022-04-16] MEDS: traZODone 50 MG TABLET PO SCH (20:53)
[2022-04-16] MEDS: GABAPENTIN 300 MG CAPSULE PO SCH (20:53)
[2022-04-16] MEDS: SENNA 8.6 MG TABLET PO SCH (20:54)
[2022-04-17] MEDS: LACTATED RINGERS 1,000 ML IV SCH ×2 (02:50→03:22)
[2022-04-17 05:26] LABS: Basophils % 0.1 % (0.0-0.8); Hematocrit 26.9 VOL% (35.7-47.0); Hemoglobin 8.8 GM/DL (12.0-16.0); Immature Granulocytes % 0.9 %; Immature Granulocytes Absolute 0.11 #; Lymphocytes # 0.6 10*3/uL (1.4-4.0); Mean Corpuscular HGB Conc 32.7 GM/DL (32-36); Mean Corpuscular Volume 92.4 FL (87-102); Mean Platelet Volume 11.9 FL (9.6-12.0); Monocytes # 1.3 10*3/uL (0.11-0.8); Monocytes % 10.5 % (1.7-12.7); NRBC # 0.06 10*3/uL; Neutrophils % 83.5 % (38.7-73.9); Platelet Count 130 T/CUMM (130-400); Red Blood Count 2.91 MC/CUMM (3.8-5.5); Red Cell Distribution Width 21.2 % (9.3-17.3); White Blood Count 12.2 T/CUMM (4-12)
[2022-04-17] MEDS: FONDAPARINUX 2.5 MG/0.5 ML SYRINGE SUBCUT SCH (05:50)
[2022-04-17 05:52] LABS: Calcium 9.4 MG/DL (8.5-10.1); Osmolality,Calculated 294.7 MOS/KG (273-304); Potassium 4.1 MMOL/L (3.5-5.1)
[2022-04-17] MEDS: ALBUTEROL 2.5 MG/3 ML NEB RESP TX SCH ×3 (05:55→14:10)
[2022-04-17] MEDS: allopurinoL 100 MG TABLET PO SCH ×2 (09:16→10:52)
[2022-04-17] MEDS: FERROUS SULFATE 325 MG TABLET PO SCH ×2 (09:16→10:51)
[2022-04-17] MEDS: ASPIRIN EC 81 MG TABLET PO SCH ×2 (09:16→10:51)
[2022-04-17] MEDS: PANTOPRAZOLE 40 MG TABLET PO SCH ×2 (09:16→10:52)
[2022-04-17] MEDS: FAMOTIDINE 20 MG TABLET PO SCH ×2 (09:16→10:51)
[2022-04-17] MEDS: ESCITALOPRAM 10 MG TABLET PO SCH ×2 (09:16→10:51)
[2022-04-17] MEDS: MULTIVITAMIN (PRENATAL) TABLET PO SCH ×2 (09:16→10:51)
[2022-04-17] MEDS: DOCUSATE SODIUM 100 MG CAPSULE PO SCH (09:17)
[2022-04-17] MEDS ORDERED: ZINC OXIDE PASTE 113 GM TUBE TOP SCH (11:00)
[2022-04-17 11:18] VITALS: BP 144/62
[2022-04-17] MEDS ORDERED: CEFUROXIME 500 MG TABLET PO SCH (17:00)
[2022-05-07] MEDS ORDERED: CYANOCOBALAMIN 1000 MCG/1 ML VIAL IM SCH (10:00)
== END 2022-04-17 15:50 | DRG 480 ==
LOC: N.ED 11:16 → SUATTDRO 13:27 → N.EDINP 13:27 → N.3E 18:07
PROVIDERS: ADMIT Internal Medicine; ATTEND Hospitalist